=== PATIENT | male | born 1985 | race Caucasian/White ===

== ENCOUNTER 2017-12-24 08:58 | Day surgery (SDC) | payer OTHER ==
[2017-12-19 10:56] VITALS: BMI 25.0
[2017-12-24] MEDS ORDERED: PROPOFOL 20 ML ONE ×2 (09:53)
[2017-12-24 10:58] VITALS: TEMP 97.9
[2017-12-24 11:19] VITALS: BP 108/63; PULSE 64
--- NOTE | 2017-12-26 12:51 | PATH ---
Surgical Pathology Report Patient Name: ERIK LEONARD [facility]. Rec. #: [id number] /Age/Gender: 1985 (Age: 32) / M Account: [id number] Location: [facility]-ENDOSCOPY Taken: 12/24/2017 Received: 12/24/2017 Reported: 12/26/2017 Physicians: Shailesh Calixto M.D. Specimen(s) Received A: BX DUODENUM B: BX ANTRUM C: BX ESOPHAGUS Clinical History Peptic ulcer disease Postoperative diagnosis: Rule out celiac disease, rule out H. Pylori, gastritis, rule out Mckeon's esophagus Final Diagnosis A. DUODENUM, BIOPSY: DUODENAL MUCOSA WITH NO PATHOLOGIC FINDINGS. B. ANTRUM, BIOPSY: MODERATE CHRONIC GASTRITIS. IMMUNOSTAIN IS NEGATIVE FOR H. PYLORI ORGANISMS. C. ESOPHAGUS, BIOPSY: ESOPHAGEAL (SQUAMOUS) MUCOSA SHOWING FEATURES OF REFLUX ESOPHAGITIS. COLUMNAR (GASTRIC CARDIA-TYPE) MUCOSA SHOWING MODERATE CHRONIC INFLAMMATION. NEGATIVE FOR INTESTINAL METAPLASIA. Electronically Signed Deirdre Collins M.D. Gross Description A. Received in formalin, labeled "duodenum" are 2 cody, irregular portions of soft tissue measuring 0.5 and 0.6 cm. in greatest dimension. The specimens are submitted in toto in one cassette. B. Received in formalin, labeled "antrum" are 2 cody, irregular portions of soft tissue measuring 0.3 and 0.5 cm. in greatest dimension. The specimens are submitted in toto in one cassette. C. Received in formalin, labeled "esophagus" are 2 cody, irregular portions of soft tissue measuring 0.3 and 0.5 cm. in greatest dimension. The specimens are submitted in toto in one cassette. 12/24/2017 saudi12/24/2017
== END 2017-12-24 11:20 | disposition home or self-care (01) ==
LOC: FASU-ENDO 08:58
PROVIDERS: ATTEND Internal Medicine Gastroenterology
PROC: 0DB58ZX Excision of Esophagus, Via Natural or Artificial Opening Endoscopic, Diagnostic (ICD-10-PCS; 2017-12-24)
PROC: 0DB98ZX Excision of Duodenum, Via Natural or Artificial Opening Endoscopic, Diagnostic (ICD-10-PCS; principal; 2017-12-24 10:26)
PROC: 0DB68ZX Excision of Stomach, Via Natural or Artificial Opening Endoscopic, Diagnostic (ICD-10-PCS; 2017-12-24 10:26)
DX: K29.50 Unspecified chronic gastritis without bleeding (principal); K21.0 Gastro-esophageal reflux disease with esophagitis; K22.70 Barrett's esophagus without dysplasia; R10.13 Epigastric pain
CPT/HCPCS: 88305-TC; 88342-TC

== ENCOUNTER 2023-05-17 22:58 | Emergency (ER) | payer SELFPAY ==
[2023-05-17 23:03] VITALS: BP 116/76; PULSE 64; RESP 18; TEMP 98.1; BMI 26.3
[2023-05-17] MEDS ORDERED: IBUPROFEN 400 MG TABLET (FP) PO ONE ×2 (23:30→23:33)
== END 2023-05-18 01:28 | disposition home or self-care (01) ==
LOC: JER 22:58
PROC: 2W3RX1Z Immobilization of Left Lower Leg using Splint (ICD-10-PCS; principal; 2023-05-17)
DX: M79.672 Pain in left foot (principal); S86.002A Unspecified injury of left Achilles tendon, initial encounter; R22.42 Localized swelling, mass and lump, left lower limb; X50.0XXA Overexertion from strenuous movement or load, initial encounter; Y93.66 Activity, soccer
CPT/HCPCS: 73610-TC-LT-FY; 73630-TC-LT; 99283-25